=== PATIENT | female | born 1945 | race Two or more races ===

== ENCOUNTER 2021-02-25 21:45 | Inpatient (IN) | payer OTHER ==
[~2021-02-25] VITALS: Ht 165.1 cm; Wt 86.2 kg
[2021-02-25] MEDS ORDERED: VALS40TA4 PO (22:04)
[2021-02-25] MEDS ORDERED: FURO20TA4 PO (22:04)
[2021-02-25] MEDS ORDERED: METO25TA6 PO (22:04)
[2021-02-25] MEDS ORDERED: AMLO10TA59 PO (22:04)
[2021-02-25] MEDS ORDERED: DOCU100C36 PO (22:04)
[2021-02-25] MEDS ORDERED: IV NORMAL SALINE 1000 ML BAG IV ONE (22:15)
[2021-02-25] MEDS ORDERED: HYDROMORPHONE 1 MG/1 ML DISP.SYRIN IV ONE (22:15)
[2021-02-25] MEDS ORDERED: ONDANSETRON 4 MG/2 ML VIAL IV ONE (22:15)
[2021-02-25] MEDS ORDERED: HYDROMORPHONE 1 MG/1 ML DISP.SYRIN ONE (22:34)
[2021-02-25] MEDS ORDERED: ONDANSETRON 4 MG/2 ML VIAL ONE (22:34)
[2021-02-25 22:40] LABS: HEMATOCRIT 35.9 % (31.2-41.9); MEAN CORPUSCULAR HEMOGLOBIN 30.5 uug (24.7-32.8); MEAN CORPUSCULAR VOLUME 91.8 fL (75.5-95.3); PLATELET COUNT (AUTO) 198 K/uL (179-408)
[2021-02-25 23:01] LABS: BILIRUBIN,DIRECT 0.2 mg/dL (0.0-0.2); BILIRUBIN,TOTAL 0.7 mg/dL (0.2-1.0); CREATININE 0.7 mg/dL (0.6-1.3); POTASSIUM 3.6 mmol/L (3.5-5.1); TOTAL PROTEIN, SERUM 6.6 g/dL (6.4-8.2)
[2021-02-25 23:29] LABS: *BILIRUBIN,URIN NEGATIVE (NEGATIVE); *BLOOD, URINE TRACE (NEGATIVE); *CLARITY,URINE CLEAR (CLEAR); *COLOR,URINE YELLOW (YELLOW); *KETONES,URINE NEGATIVE (NEGATIVE); *UROBILINOGEN,URINE 0.2 E.U./dl (NORMAL); LEUKOCYTE ESTERASE ,URINE 2+ (NEGATIVE); NITRITE, URINE NEGATIVE (NEGATIVE); PH,URINE 5.5 (5.0-8.0); UGLUCOSE NEGATIVE (NEGATIVE)
[2021-02-25 23:35] LABS: BACTERIA,URINE FEW /HPF (NONE SEEN); WBC,URINE 20-50 /HPF (0-3)
[2021-02-25 23:36] LABS: SQUAMOUS EPITHELIAL CELL,UR MODERATE /HPF (NONE SEEN)
[2021-02-26 01:10] VITALS: BP_SYST 135; BP_SYST 85; BP_DIAS 45; BP_DIAS 47
[2021-02-26] MEDS ORDERED: ONDANSETRON 4 MG/2 ML VIAL IV PRN (01:45)
[2021-02-26] MEDS ORDERED: DEXTROSE 50% 50 ML DISP.SYRIN IV PRN (01:45)
[2021-02-26] MEDS ORDERED: MORPHINE SULFATE 2 MG/1 ML DISP.SYRIN IV PRN (01:45)
[2021-02-26] MEDS ORDERED: MAGNESIUM HYDROXIDE 30 ML LIQUID UDC PO PRN (01:45)
[2021-02-26] MEDS ORDERED: Z GUARD REMEDY PASTE 57 GM TUBE TOP PRN (01:45)
[2021-02-26] MEDS ORDERED: ACETAMINOPHEN 325 MG TABLET PO PRN (01:45)
[2021-02-26] MEDS: METRONIDAZOLE 500 MG/NS 100ML 500 MG in PREMIXED 1 EACH IV SCH ×4 (02:00→21:20)
[2021-02-26] MEDS ORDERED: IV NORMAL SALINE 1000 ML BAG IV ONE (02:15)
[2021-02-26 03:00] VITALS: BP 135/45
[2021-02-26] MEDS ORDERED: ZOLPIDEM 5 MG TABLET PO PRN (03:15)
[2021-02-26] MEDS: IV 1/2NS 1000 ML 1,000 ML IV PRN ×2 (03:20→20:03)
[2021-02-26] MEDS ORDERED: CEFTRIAXONE 1 G VIAL ONE (04:26)
[2021-02-26] MEDS ORDERED: METRONIDAZOLE 500 MG/NS 100ML 100 ML IV ONE (04:27)
[2021-02-26] MEDS: CEFTRIAXONE 1 G in IV DEXTROSE 5% 50 ML IV SCH (04:50)
[2021-02-26 05:48] VITALS: BP 146/62
[2021-02-26] MEDS: BLOOD SUGAR DIAGNOSTIC 1 EACH STRIP VI SCH ×4 (06:31→20:42)
[2021-02-26] MEDS: PANTOPRAZOLE SODIUM 40 MG TABLET.DR PO SCH (06:35)
[2021-02-26] MEDS: DOCUSATE SODIUM 100 MG CAPSULE PO SCH ×2 (09:25→16:50)
[2021-02-26] MEDS: METOPROLOL TARTRATE 25 MG TABLET PO SCH ×2 (09:26→20:26)
[2021-02-26] MEDS: VALSARTAN 40 MG TABLET PO SCH (09:27)
[2021-02-26] MEDS: FUROSEMIDE 20 MG TABLET PO SCH (09:27)
[2021-02-26] MEDS: AMLODIPINE 10 MG TABLET PO SCH (09:27)
[2021-02-26 11:43] VITALS: BP 126/52
[2021-02-26] MEDS ORDERED: SODIUM CHLORIDE 2% OPHT DROPS 15 ML RIGHTEYE PRN (14:15)
[2021-02-26 15:44] VITALS: BP 135/59
[2021-02-26] MEDS: TETRAHYDROZOLINE 0.05% OPHT DR 15 ML BOTTLE RIGHTEYE PRN (16:55)
[2021-02-26 20:03] VITALS: BP_SYST 110; BP_SYST 122; BP_DIAS 52; BP_DIAS 59
[2021-02-27] VITALS: BP 142/62
[2021-02-27 04:03] VITALS: BP 129/56
[2021-02-27] MEDS: CEFTRIAXONE 1 G in IV DEXTROSE 5% 50 ML IV SCH (04:06)
[2021-02-27] MEDS: METRONIDAZOLE 500 MG/NS 100ML 500 MG in PREMIXED 1 EACH IV SCH ×3 (06:29→21:44)
[2021-02-27] MEDS: PANTOPRAZOLE SODIUM 40 MG TABLET.DR PO SCH (06:29)
[2021-02-27] MEDS: BLOOD SUGAR DIAGNOSTIC 1 EACH STRIP VI SCH ×4 (06:40→20:20)
[2021-02-27 06:45] LABS: HEMATOCRIT 31.9 % (31.2-41.9); MEAN CORPUSCULAR HEMOGLOBIN 31.6 uug (24.7-32.8); MEAN CORPUSCULAR VOLUME 93.1 fL (75.5-95.3); PLATELET COUNT (AUTO) 179 K/uL (179-408)
[2021-02-27 06:58] LABS: CARBON DIOXIDE 31 mmol/L (21-32); CHLORIDE 107 mmol/L (98-107); CHOLESTEROL 149 mg/dL (<200); CREATININE 0.5 mg/dL (0.6-1.3); GLUCOSE 98 mg/dL (74-106); HDL CHOLESTEROL 45 mg/dL (40-60); MAGNESIUM 1.6 mg/dL (1.8-2.4); POTASSIUM 3.7 mmol/L (3.5-5.1); TRIGLYCERIDES 80 MG/DL (30-150); UREA NITROGEN, BLOOD 4 mg/dL (7-18)
[2021-02-27] MEDS: AMLODIPINE 10 MG TABLET PO SCH (08:11)
[2021-02-27] MEDS: VALSARTAN 40 MG TABLET PO SCH (08:11)
[2021-02-27] MEDS: DOCUSATE SODIUM 100 MG CAPSULE PO SCH ×2 (08:11→17:00)
[2021-02-27] MEDS: FUROSEMIDE 20 MG TABLET PO SCH (08:11)
[2021-02-27] MEDS: METOPROLOL TARTRATE 25 MG TABLET PO SCH ×2 (08:12→20:19)
[2021-02-27] MEDS ORDERED: MAGNESIUM OXIDE 400 MG TABLET PO ONE (10:15)
[2021-02-27] MEDS ORDERED: MAGNESIUM SULFATE/D5W 100 ML IV SCH (10:15)
[2021-02-27] MEDS: TETRAHYDROZOLINE 0.05% OPHT DR 15 ML BOTTLE RIGHTEYE PRN (11:18)
[2021-02-27 12:00] VITALS: BP 130/58
[2021-02-27 16:00] VITALS: BP 138/68
[2021-02-27 20:05] VITALS: BP 128/62
[2021-02-28] VITALS (8 sets, daily range): BP systolic 109–130; BP diastolic 27–64
[2021-02-28] MEDS: CEFTRIAXONE 1 G in IV DEXTROSE 5% 50 ML IV SCH (05:03)
[2021-02-28] MEDS: PANTOPRAZOLE SODIUM 40 MG TABLET.DR PO SCH (06:02)
[2021-02-28] MEDS: METRONIDAZOLE 500 MG/NS 100ML 500 MG in PREMIXED 1 EACH IV SCH ×3 (06:02→22:32)
[2021-02-28] MEDS: BLOOD SUGAR DIAGNOSTIC 1 EACH STRIP VI SCH ×4 (06:13→20:48)
[2021-02-28 06:48] LABS: CARBON DIOXIDE 32 mmol/L (21-32); CHLORIDE 104 mmol/L (98-107); CREATININE 0.4 mg/dL (0.6-1.3); GLUCOSE 98 mg/dL (74-106); MAGNESIUM 1.6 mg/dL (1.8-2.4); PHOSPHOROUS 3.7 mg/dL (2.5-4.9); POTASSIUM 3.3 mmol/L (3.5-5.1); UREA NITROGEN, BLOOD 3 mg/dL (7-18)
[2021-02-28] MEDS: POTASSIUM CHLORIDE 50 ML IV SCH ×2 (07:38→08:57)
[2021-02-28] MEDS: VALSARTAN 40 MG TABLET PO SCH (08:00)
[2021-02-28] MEDS: MAGNESIUM SULFATE/D5W 100 ML IV SCH ×2 (08:00→08:57)
[2021-02-28] MEDS: DOCUSATE SODIUM 100 MG CAPSULE PO SCH ×2 (08:00→17:00)
[2021-02-28] MEDS: AMLODIPINE 10 MG TABLET PO SCH (08:01)
[2021-02-28] MEDS: METOPROLOL TARTRATE 25 MG TABLET PO SCH ×2 (08:01→21:05)
[2021-02-28] MEDS: FUROSEMIDE 20 MG TABLET PO SCH (08:01)
[2021-02-28] MEDS: TETRAHYDROZOLINE 0.05% OPHT DR 15 ML BOTTLE RIGHTEYE PRN (08:08)
[2021-02-28 09:09] LABS: MEAN CORPUSCULAR VOLUME 93.5 fL (75.5-95.3); PLATELET COUNT (AUTO) 170 K/uL (179-408)
[2021-02-28] MEDS ORDERED: LIDOCAINE HCL 1% 20 ML VIAL ONE (12:56)
[2021-02-28] MEDS ORDERED: BACITRACIN ZINC OINT 15 GM TUBE ONE (12:56)
[2021-02-28] MEDS ORDERED: BUPIVACAINE/EPI PF 0.25% 30 ML VIAL ONE (12:56)
[2021-02-28] MEDS ORDERED: MEROPENEM 1 G in IV NORMAL SALINE 100 ML IV ONE (13:00)
[2021-02-28] MEDS ORDERED: FENTANYL CITRATE 100 MCG/2 ML AMPUL ONE (13:13)
[2021-02-28] MEDS ORDERED: ROCURONIUM BROMIDE 50 MG/5 ML VIAL ONE (13:13)
[2021-02-28] MEDS: MORPHINE SULFATE 2 MG/1 ML DISP.SYRIN IV PRN (17:05)
[2021-02-28] MEDS: IV LACTATED RINGERS SOLUTION 1,000 ML IV PRN (17:19)
[2021-02-28] MEDS: INSULIN REGULAR, HUMAN 300 UNIT/3 ML VIAL SQ PRN ×2 (17:20→20:52)
[2021-02-28] MEDS: ACETAMINOPHEN 325 MG TABLET PO SCH (18:09)
[2021-02-28] MEDS: IBUPROFEN 600 MG TABLET PO SCH (18:10)
[2021-02-28] MEDS: GABAPENTIN 300 MG CAPSULE PO SCH (18:10)
[2021-02-28] MEDS: MEROPENEM 1 G in IV NORMAL SALINE 100 ML IV SCH (21:01)
[2021-03-01] VITALS: BP 103/31
[2021-03-01] MEDS: IBUPROFEN 600 MG TABLET PO SCH ×3 (02:16→18:08)
[2021-03-01] MEDS: ACETAMINOPHEN 325 MG TABLET PO SCH ×3 (02:16→18:08)
[2021-03-01] MEDS: GABAPENTIN 300 MG CAPSULE PO SCH ×3 (02:16→18:08)
[2021-03-01 04:16] VITALS: BP 130/52
[2021-03-01] MEDS: MEROPENEM 1 G in IV NORMAL SALINE 100 ML IV SCH ×3 (04:17→21:16)
[2021-03-01] MEDS: METRONIDAZOLE 500 MG/NS 100ML 500 MG in PREMIXED 1 EACH IV SCH ×2 (05:54→16:01)
[2021-03-01] MEDS: PANTOPRAZOLE SODIUM 40 MG TABLET.DR PO SCH (06:06)
[2021-03-01 06:09] LABS: HEMATOCRIT 32.1 % (31.2-41.9); MEAN CORPUSCULAR HEMOGLOBIN 30.5 uug (24.7-32.8); MEAN CORPUSCULAR VOLUME 92.4 fL (75.5-95.3); PLATELET COUNT (AUTO) 172 K/uL (179-408)
[2021-03-01] MEDS: BLOOD SUGAR DIAGNOSTIC 1 EACH STRIP VI SCH ×4 (06:33→21:37)
[2021-03-01 06:37] LABS: CREATININE 0.7 mg/dL (0.6-1.3); MAGNESIUM 1.7 mg/dL (1.8-2.4); PHOSPHOROUS 3.8 mg/dL (2.5-4.9); POTASSIUM 4.1 mmol/L (3.5-5.1)
[2021-03-01] MEDS: DOCUSATE SODIUM 100 MG CAPSULE PO SCH ×2 (08:53→17:52)
[2021-03-01] MEDS: FUROSEMIDE 20 MG TABLET PO SCH (08:53)
[2021-03-01] MEDS: VALSARTAN 40 MG TABLET PO SCH (08:54)
[2021-03-01] MEDS: AMLODIPINE 10 MG TABLET PO SCH (08:55)
[2021-03-01] MEDS: METOPROLOL TARTRATE 25 MG TABLET PO SCH ×2 (08:55→21:46)
[2021-03-01] MEDS: MAGNESIUM SULFATE/D5W 100 ML IV SCH ×2 (09:22→11:02)
[2021-03-01 12:00] VITALS: BP 115/46
[2021-03-01] MEDS: INSULIN REGULAR, HUMAN 300 UNIT/3 ML VIAL SQ PRN ×2 (12:29→21:41)
[2021-03-01] MEDS ORDERED: LEVO500T90 PO (13:41)
[2021-03-01 15:58] VITALS: BP 88/34
[2021-03-01] MEDS: IV LACTATED RINGERS SOLUTION 1,000 ML IV PRN (21:29)
[2021-03-01] MEDS: MORPHINE SULFATE 2 MG/1 ML DISP.SYRIN IV PRN (21:47)
[2021-03-02] VITALS (7 sets, daily range): BP systolic 91–133; BP diastolic 36–55
[2021-03-02] MEDS: ACETAMINOPHEN 325 MG TABLET PO SCH ×3 (01:39→17:00)
[2021-03-02] MEDS: IBUPROFEN 600 MG TABLET PO SCH ×3 (01:39→17:00)
[2021-03-02] MEDS: GABAPENTIN 300 MG CAPSULE PO SCH ×3 (01:39→17:00)
[2021-03-02] MEDS: MEROPENEM 1 G in IV NORMAL SALINE 100 ML IV SCH ×2 (04:45→12:01)
[2021-03-02] MEDS: PANTOPRAZOLE SODIUM 40 MG TABLET.DR PO SCH (06:14)
[2021-03-02] MEDS: BLOOD SUGAR DIAGNOSTIC 1 EACH STRIP VI SCH ×4 (06:39→20:44)
[2021-03-02 06:49] LABS: MEAN CORPUSCULAR HEMOGLOBIN 31.6 uug (24.7-32.8); MEAN CORPUSCULAR VOLUME 93.8 fL (75.5-95.3); PLATELET COUNT (AUTO) 156 K/uL (179-408)
[2021-03-02 06:55] LABS: CREATININE 0.9 mg/dL (0.6-1.3); PHOSPHOROUS 3.2 mg/dL (2.5-4.9); POTASSIUM 3.2 mmol/L (3.5-5.1)
[2021-03-02] MEDS: VALSARTAN 40 MG TABLET PO SCH (08:09)
[2021-03-02] MEDS: FUROSEMIDE 20 MG TABLET PO SCH (08:09)
[2021-03-02] MEDS: DOCUSATE SODIUM 100 MG CAPSULE PO SCH ×2 (08:09→16:52)
[2021-03-02] MEDS: AMLODIPINE 10 MG TABLET PO SCH (08:10)
[2021-03-02] MEDS: METOPROLOL TARTRATE 25 MG TABLET PO SCH ×2 (08:10→20:44)
[2021-03-02] MEDS ORDERED: POTASSIUM CHLORIDE 20 MEQ POWDER PACKET PO ONE (09:30)
[2021-03-02] MEDS: IV LACTATED RINGERS SOLUTION 1,000 ML IV PRN (10:00)
[2021-03-02] MEDS: MORPHINE SULFATE 2 MG/1 ML DISP.SYRIN IV PRN (14:22)
[2021-03-02] MEDS ORDERED: PROPOFOL 200 MG/20 ML BOTTLE IV ONE (14:59)
[2021-03-02] MEDS ORDERED: ETOMIDATE 20 MG/10 ML VIAL IV ONE (14:59)
[2021-03-02] MEDS ORDERED: DEXAMETHASONE SOD PHOSPHATE 4 MG INJ IV ONE (14:59)
[2021-03-02] MEDS ORDERED: ONDANSETRON 4 MG/2 ML VIAL IV ONE (14:59)
[2021-03-02] MEDS ORDERED: SUCCINYLCHOLINE CHLORIDE 200 MG/10 ML VIAL IV ONE (14:59)
[2021-03-02] MEDS: MIDODRINE HCL 5 MG TABLET PO SCH ×2 (16:52→21:00)
[2021-03-03] VITALS: BP 101/42
[2021-03-03] MEDS: ACETAMINOPHEN 325 MG TABLET PO SCH ×3 (02:21→17:01)
[2021-03-03] MEDS: GABAPENTIN 300 MG CAPSULE PO SCH ×3 (02:21→17:01)
[2021-03-03] MEDS: IBUPROFEN 600 MG TABLET PO SCH ×3 (02:21→17:01)
[2021-03-03 04:00] VITALS: BP 126/50
[2021-03-03] MEDS: PANTOPRAZOLE SODIUM 40 MG TABLET.DR PO SCH (06:02)
[2021-03-03] MEDS: BLOOD SUGAR DIAGNOSTIC 1 EACH STRIP VI SCH ×4 (07:04→21:07)
[2021-03-03 07:18] LABS: HEMATOCRIT 30.3 % (31.2-41.9); MEAN CORPUSCULAR HEMOGLOBIN 31.5 uug (24.7-32.8); MEAN CORPUSCULAR VOLUME 94.6 fL (75.5-95.3); PLATELET COUNT (AUTO) 157 K/uL (179-408)
[2021-03-03 07:41] LABS: CREATININE 0.6 mg/dL (0.6-1.3); MAGNESIUM 1.9 mg/dL (1.8-2.4); PHOSPHOROUS 2.7 mg/dL (2.5-4.9); POTASSIUM 3.8 mmol/L (3.5-5.1)
[2021-03-03] MEDS: MIDODRINE HCL 5 MG TABLET PO SCH ×2 (09:00→21:00)
[2021-03-03] MEDS: DOCUSATE SODIUM 100 MG CAPSULE PO SCH ×2 (09:00→17:00)
[2021-03-03] MEDS: FUROSEMIDE 20 MG TABLET PO SCH (09:40)
[2021-03-03] MEDS: AMLODIPINE 10 MG TABLET PO SCH (09:41)
[2021-03-03] MEDS: METOPROLOL TARTRATE 25 MG TABLET PO SCH ×2 (09:41→21:50)
[2021-03-03] MEDS: VALSARTAN 40 MG TABLET PO SCH (09:41)
[2021-03-03 11:57] VITALS: BP 114/80
[2021-03-03] MEDS ORDERED: MEROPENEM 1 G in IV NORMAL SALINE 100 ML IV SCH (14:00)
[2021-03-03] MEDS ORDERED: MEROPENEM 1 G in IV NORMAL SALINE 100 ML IV ONE (14:00)
[2021-03-03 16:41] VITALS: BP 118/49
[2021-03-03 20:00] VITALS: BP 124/65
[2021-03-03 21:00] VITALS: BP 135/86
[2021-03-03] MEDS: MEROPENEM 1 G in IV NORMAL SALINE 100 ML IV SCH (21:52)
[2021-03-04] MEDS: GABAPENTIN 300 MG CAPSULE PO SCH ×3 (02:00→18:15)
[2021-03-04] MEDS: IBUPROFEN 600 MG TABLET PO SCH ×3 (02:00→18:15)
[2021-03-04] MEDS: ACETAMINOPHEN 325 MG TABLET PO SCH ×3 (02:32→18:15)
[2021-03-04 04:03] VITALS: BP 151/60
[2021-03-04] MEDS: MEROPENEM 1 G in IV NORMAL SALINE 100 ML IV SCH ×3 (05:29→21:31)
[2021-03-04] MEDS: PANTOPRAZOLE SODIUM 40 MG TABLET.DR PO SCH (05:54)
[2021-03-04] MEDS: BLOOD SUGAR DIAGNOSTIC 1 EACH STRIP VI SCH ×4 (06:45→21:35)
[2021-03-04 06:48] LABS: HEMATOCRIT 31.6 % (31.2-41.9); MEAN CORPUSCULAR HEMOGLOBIN 31.4 uug (24.7-32.8); PLATELET COUNT (AUTO) 171 K/uL (179-408)
[2021-03-04 06:50] LABS: CARBON DIOXIDE 35 mmol/L (21-32); CHLORIDE 108 mmol/L (98-107); CREATININE 0.5 mg/dL (0.6-1.3); GLUCOSE 102 mg/dL (74-106); MAGNESIUM 1.7 mg/dL (1.8-2.4); PHOSPHOROUS 2.8 mg/dL (2.5-4.9); UREA NITROGEN, BLOOD 9 mg/dL (7-18)
[2021-03-04] MEDS: MIDODRINE HCL 5 MG TABLET PO SCH ×2 (09:00→21:00)
[2021-03-04] MEDS: DOCUSATE SODIUM 100 MG CAPSULE PO SCH ×2 (09:00→17:00)
[2021-03-04] MEDS: VALSARTAN 40 MG TABLET PO SCH (09:02)
[2021-03-04] MEDS: METOPROLOL TARTRATE 25 MG TABLET PO SCH ×2 (09:03→21:37)
[2021-03-04] MEDS: AMLODIPINE 10 MG TABLET PO SCH (09:03)
[2021-03-04] MEDS: FUROSEMIDE 20 MG TABLET PO SCH (09:03)
[2021-03-04] MEDS: MAGNESIUM SULFATE/D5W 100 ML IV SCH ×2 (10:55→12:46)
[2021-03-04 11:30] VITALS: BP 136/61
[2021-03-04 15:28] VITALS: BP 138/56
[2021-03-04 20:00] VITALS: BP 134/51
[2021-03-05 00:32] VITALS: BP 138/57
[2021-03-05] MEDS: IBUPROFEN 600 MG TABLET PO SCH ×3 (01:47→18:11)
[2021-03-05] MEDS: GABAPENTIN 300 MG CAPSULE PO SCH ×3 (01:47→18:11)
[2021-03-05] MEDS: ACETAMINOPHEN 325 MG TABLET PO SCH ×3 (01:47→18:11)
[2021-03-05 05:00] VITALS: BP 143/59
[2021-03-05] MEDS: PANTOPRAZOLE SODIUM 40 MG TABLET.DR PO SCH (06:47)
[2021-03-05] MEDS: MEROPENEM 1 G in IV NORMAL SALINE 100 ML IV SCH ×3 (06:47→21:09)
[2021-03-05] MEDS: BLOOD SUGAR DIAGNOSTIC 1 EACH STRIP VI SCH ×4 (06:52→20:48)
[2021-03-05 07:15] LABS: CARBON DIOXIDE 33 mmol/L (21-32); CHLORIDE 105 mmol/L (98-107); CREATININE 0.3 mg/dL (0.6-1.3); GLUCOSE 91 mg/dL (74-106); MAGNESIUM 2.1 mg/dL (1.8-2.4); POTASSIUM 3.8 mmol/L (3.5-5.1); UREA NITROGEN, BLOOD 6 mg/dL (7-18)
[2021-03-05] MEDS: MIDODRINE HCL 5 MG TABLET PO SCH (09:00)
[2021-03-05] MEDS: FUROSEMIDE 20 MG TABLET PO SCH (09:22)
[2021-03-05] MEDS: DOCUSATE SODIUM 100 MG CAPSULE PO SCH ×2 (09:22→17:00)
[2021-03-05] MEDS: VALSARTAN 40 MG TABLET PO SCH (09:28)
[2021-03-05] MEDS: AMLODIPINE 10 MG TABLET PO SCH (09:29)
[2021-03-05] MEDS: METOPROLOL TARTRATE 25 MG TABLET PO SCH ×2 (09:29→20:53)
[2021-03-05] MEDS ORDERED: FUROSEMIDE 20 MG/2 ML VIAL IV ONE (11:30)
[2021-03-05 11:56] VITALS: BP 136/52
[2021-03-05 16:00] VITALS: BP 115/55
[2021-03-05 20:10] VITALS: BP 121/45
[2021-03-06] MEDS: GABAPENTIN 300 MG CAPSULE PO SCH ×2 (01:25→09:50)
[2021-03-06] MEDS: IBUPROFEN 600 MG TABLET PO SCH ×2 (01:25→09:50)
[2021-03-06] MEDS: ACETAMINOPHEN 325 MG TABLET PO SCH ×2 (01:26→09:51)
[2021-03-06 04:40] VITALS: BP 114/55
[2021-03-06] MEDS: MEROPENEM 1 G in IV NORMAL SALINE 100 ML IV SCH (05:04)
[2021-03-06] MEDS: PANTOPRAZOLE SODIUM 40 MG TABLET.DR PO SCH (06:04)
[2021-03-06] MEDS: BLOOD SUGAR DIAGNOSTIC 1 EACH STRIP VI SCH ×2 (06:49→11:24)
[2021-03-06 07:20] LABS: CARBON DIOXIDE 35 mmol/L (21-32); CHLORIDE 105 mmol/L (98-107); CREATININE 0.5 mg/dL (0.6-1.3); GLUCOSE 94 mg/dL (74-106); POTASSIUM 3.4 mmol/L (3.5-5.1); UREA NITROGEN, BLOOD 7 mg/dL (7-18)
[2021-03-06] MEDS: DOCUSATE SODIUM 100 MG CAPSULE PO SCH (08:45)
[2021-03-06] MEDS: FUROSEMIDE 20 MG TABLET PO SCH (08:48)
[2021-03-06] MEDS: VALSARTAN 40 MG TABLET PO SCH (08:48)
[2021-03-06] MEDS: AMLODIPINE 10 MG TABLET PO SCH (08:49)
[2021-03-06] MEDS: METOPROLOL TARTRATE 25 MG TABLET PO SCH (08:49)
[2021-03-06] MEDS ORDERED: POTASSIUM CHLORIDE 20 MEQ TAB.PRT.SR PO ONE (09:45)
[2021-03-06 11:34] VITALS: BP 102/99
[2021-03-06 15:54] VITALS: BP 128/47
== END 2021-03-06 16:30 | disposition home health service (06) | DRG 792 ==
LOC: ER 21:48 → TELE3 02-26 02:28 → MEDSURG3 03-03 10:42
PROVIDERS: ADMIT Student in an Organized Health Care Education/Training Program; ATTEND Nurse Practitioner Acute Care
PROC: 0DNU4ZZ Release Omentum, Percutaneous Endoscopic Approach (ICD-10-PCS; principal; 2021-02-28)
PROC: 0FT44ZZ Resection of Gallbladder, Percutaneous Endoscopic Approach (ICD-10-PCS; principal; 2021-02-28)
DX: T85.628A Displacement of other specified internal prosthetic devices, implants and grafts, initial encounter (principal); J96.01 Acute respiratory failure with hypoxia; K80.10 Calculus of gallbladder with chronic cholecystitis without obstruction; E66.01 Morbid (severe) obesity due to excess calories; I11.0 Hypertensive heart disease with heart failure; I50.32 Chronic diastolic (congestive) heart failure; L02.211 Cutaneous abscess of abdominal wall; N39.0 Urinary tract infection, site not specified; B96.20 Unspecified Escherichia coli [E. coli] as the cause of diseases classified elsewhere; E11.9 Type 2 diabetes mellitus without complications; J98.11 Atelectasis; L03.311 Cellulitis of abdominal wall; Z16.12 Extended spectrum beta lactamase (ESBL) resistance; M43.16 Spondylolisthesis, lumbar region; Z20.822 Contact with and (suspected) exposure to COVID-19; Z68.31 Body mass index [BMI] 31.0-31.9, adult; S30.1XXA Contusion of abdominal wall, initial encounter; X58.XXXA Exposure to other specified factors, initial encounter; Y93.9 Activity, unspecified; Y92.89 Other specified places as the place of occurrence of the external cause
CPT/HCPCS: 36415; 70030-TC; 71045; 83605; 83690; 83735; 84100; 85025; 85730; 87040; 87077; 87086; 93005; 93307; 97161; A4649; A4663; A9150; G0378; J0330; J0696; J1100; J1170; J1815; J1940; J2185; J2270; J2405; J3010; J3475; J3480; J3490; J7030; J7040; J7060; J7120